=== PATIENT | male | born 1955 | race Caucasian/White ===

== ENCOUNTER → 2018-06-28 | Outpatient (CLI) | payer MEDICARE, OTHER | LOC: M PAIN 12:30 | DX: M54.5 Low back pain (principal); M79.18 Myalgia, other site; M47.816 Spondylosis without myelopathy or radiculopathy, lumbar region; M54.2 Cervicalgia; M53.3 Sacrococcygeal disorders, not elsewhere classified; E78.00 Pure hypercholesterolemia, unspecified; I10 Essential (primary) hypertension; G43.909 Migraine, unspecified, not intractable, without status migrainosus; M19.90 Unspecified osteoarthritis, unspecified site; F17.210 Nicotine dependence, cigarettes, uncomplicated; R06.83 Snoring; Z79.82 Long term (current) use of aspirin; Z79.899 Other long term (current) drug therapy; Z88.8 Allergy status to other drugs, medicaments and biological substances; Z86.79 Personal history of other diseases of the circulatory system | CPT/HCPCS: G0463 ==

== ENCOUNTER → 2018-07-06 | Outpatient (CLI) | payer MEDICARE, OTHER ==
[~2018-07-06] MED LIST: BUPIVACAINE HCL 0.25% 30 ML VIAL As Ordered; TRIAMCINOLONE ACETONIDE SUSP 40 MG/ML VIAL (J3301) As Ordered; diazePAM 5 MG TAB As Ordered; oxyCODONE 5MG TAB As Ordered
== END ==
LOC: M PAIN 13:15
DX: M79.18 Myalgia, other site (principal); M54.5 Low back pain; I10 Essential (primary) hypertension; G43.909 Migraine, unspecified, not intractable, without status migrainosus; E78.00 Pure hypercholesterolemia, unspecified; M19.90 Unspecified osteoarthritis, unspecified site; F17.210 Nicotine dependence, cigarettes, uncomplicated; Z79.82 Long term (current) use of aspirin; Z79.899 Other long term (current) drug therapy; Z88.8 Allergy status to other drugs, medicaments and biological substances
CPT/HCPCS: J3301

== ENCOUNTER → 2018-07-12 | Outpatient (CLI) | payer MEDICARE, OTHER | LOC: M RAD 11:18 | DX: Z12.2 Encounter for screening for malignant neoplasm of respiratory organs (principal); Z87.891 Personal history of nicotine dependence | CPT/HCPCS: G0297 ==

== ENCOUNTER → 2018-07-21 | Outpatient (CLI) | payer MEDICARE, OTHER ==
[~2018-07-21] MED LIST changes: +/DULO30CA OR; +/ESOM40CA OR; +ASCO500T PO; +ASPI81CH32 PO; +ASPI81TA3 OR; -BUPIVACAINE HCL 0.25% 30 ML VIAL As Ordered; +COQ10 OR; +CRES20TA OR; +CYCL10TA PO; +DULO1CAP3 PO; +ESOM40CA35 PO; +FISH300C2 OR; +FLEXERIL PO; +GABA600T3 OR; +HYDR-4517 PO; +KRIL1000 PO; +LISI10TA4 PO; +LOPR1TAB6 PO; +LOPR50TA OR; +MELOPOW OR; +NEUR800T PO; +NIAS500T2 OR; +NITR0.4S SL; +NITR0.4S14 SL; +RYZOLT; +SILD100T PO; +SILD25TA OR; +SOMA350T OR; +THERAPEUTIC M OR; +TRAMPOW3 XX; +TRAZ50TA OR; -TRIAMCINOLONE ACETONIDE SUSP 40 MG/ML VIAL (J3301) As Ordered; +TYLENOL #3 OR; +ULTRTA OR; +VARE1TA OR; +VITA500C OR; +VITA50TA12 OR; +[UNRECOGNIZED DRUG - OTHER] OR; -diazePAM 5 MG TAB As Ordered; -oxyCODONE 5MG TAB As Ordered
--- NOTE | 2018-08-08 23:41 | ECWPNPC ---
PATIENT NAME: ADÁN VALENTIN : 1955 GENDER: MALE VISIT DATE: 07/21/2018 DISCHARGE DATE: 07/21/18 1514 VISIT LOCKED DATE TIME: PHYSICIAN: ANAI WAY MD RESOURCE: ANAI WAY MD REASON FOR APPOINTMENT 1. POST TPI HISTORY OF PRESENT ILLNESS DEPRESSION SCREENING: PHQ-2 IN LAST TWO WEEKS HAVE YOU BEEN BOTHERED BY LITTLE INTEREST OR PLEASURE IN DOING THINGSNO FEELING DOWN, DEPRESSED, OR HOPELESSNO HISTORY OF PRESENT ILLNESS: PAIN THE PATIENT DESCRIBES THE PAIN... 62 YEAR OLD MALE PATIENT WITH A HISTORY OF CHRONIC LOW BACK PAIN. PATIENT DESCRIBES THE PAIN SORE WITH A PAIN SCORE OF 2-5/10 DEPENDING ON PHYSICAL ACTIVITY. THE PATIENT RECENTLY HAD A TRIGGER POINT INJECTION DONE ON 07/06/18 AND REPORTS HAVING OVER 50% PAIN RELIEF WITH GREAT IMPROVEMENT IN MOBILITY AND FUNCTIONALITY. THE PATIENT STATES THAT HE ALSO REDUCED THE DOSAGE OF HYDROCODONE BY OVER 50% BECAUSE OF THE PAIN RELIEF. PATIENT DENIES UNEXPLAINABLE WEIGHT LOSS, FEVER, CHILLS, NEW CHANGES ON HIS URINARY OR BOWEL CONTROL. FALL RISK SCREENING: SCREENING :NO FALLS IN THE PAST YEAR CURRENT MEDICATIONS TAKING METOPROLOL TARTRATE 50 MG TABLET 1 TABLET WITH FOOD ORALLY TWICE A DAY TAKING LISINOPRIL 5 MG TABLET 1 TABLET ORALLY ONCE A DAY TAKING DULOXETINE HCL 60 MG CAPSULE DELAYED RELEASE PARTICLES 1 CAPSULE ORALLY BEFORE BEDTIME TAKING GABAPENTIN 800 MG TABLET 1 TABLET ORALLY TID TAKING NORCO 10-325 MG TABLET 1 TABLET NEEDED ORALLY EVERY 6 HRS TAKING MECLIZINE HCL 12.5 MG TABLET 1 TABLET NEEDED ORALLY ONCE A DAY TAKING ZETIA 10 MG TABLET 1 TABLET ORALLY ONCE A DAY TAKING ASPIRIN EC 325 MG TABLET DELAYED RELEASE 1 TABLET ORALLY ONCE A DAY TAKING VITAMIN C 500 MG CAPSULE ORALLY BID TAKING CENTRUM SILVER - TABLET ORALLY DAILY TAKING CO Q 10 10 MG CAPSULE 1 CAPSULE WITH A MEAL ORALLY BID TAKING OMEGA 3 340 MG CAPSULE DELAYED RELEASE 1 CAPSULE ORALLY ONCE A DAY TAKING NEXIUM 20 MG CAPSULE DELAYED RELEASE 1 CAPSULE ORALLY ONCE A DAY TAKING METAXALONE 800 MG TABLET 1 TABLET ORALLY TWICE DAILY NEEDED, NOTES: NONE IN PAST MONTH TAKING ZOLPIDEM TARTRATE ER 12.5 MG TABLET EXTENDED RELEASE 1 TABLET AT BEDTIME NEEDED ORALLY ONCE A DAY, NOTES: NONE IN WEEKS TAKING PROAIR HFA 108 (90 BASE) MCG/ACT AEROSOL SOLUTION 2 PUFFS NEEDED INHALATION EVERY 6 HRS NOT-TAKING VITAMIN B-12 100 MCG TABLET ORALLY , NOTES: 07/05/18 PM MEDICATION LIST REVIEWED AND RECONCILED WITH THE PATIENT PAST MEDICAL HISTORY FIBROMYALGIA HIGH CHOLESTEROL HYPERTENSION MIGRAINES OSTEOARTHRITIS - BACK, JOINTS CHRONIC BACK PAIN CHRONIC NECK PAIN CORONARY ARTERY DISEASE ALLERGIES ZOCOR: SIDE EFFECTS SURGICAL HISTORY STENT PLACEMENT 2006 APPENDECTOMY 2016 PILONIDAL CYST REMOVAL X3 FAMILY HISTORY FATHER: , DIAGNOSED WITH HEART DISEASE MOTHER: ALIVE, DIAGNOSED WITH HYPERTENSION, OTHER 1 SISTER(S) - HEALTHY. 2DAUGHTER(S) - HEALTHY. SISTER - HTN. SOCIAL HISTORY GENERAL: TOBACCO USE ARE YOU A:CURRENT SMOKER ARE YOU INTERESTED IN QUITTING?THINKING ABOUT QUITTING HAS CUT BACK TO A FEW CIGARETTES A DAY. COUNSELED THE PATIENT ON SMOKING CESSATION, EDUCATION [id number]/21/2018 HOW MANY CIGARETTES A DAY DO YOU SMOKE?5 OR LESS HOW OFTEN DO YOU SMOKE CIGARETTES?SOME DAYS, BUT NOT EVERY DAY PATIENT COUNSELED ON THE DANGERS OF TOBACCO USE AND URGED TO QUIT:06/28/2018 ALCOHOL SCREENING DID YOU HAVE A DRINK CONTAINING ALCOHOL IN THE PAST YEAR?YES HOW OFTEN DID YOU HAVE A DRINK CONTAINING ALCOHOL IN THE PAST YEAR?MONTHLY OR LESS (1 POINT) HOW MANY DRINKS DID YOU HAVE ON A TYPICAL DAY WHEN YOU WERE DRINKING IN THE PAST YEAR?1 OR 2 (0 POINTS) HOW OFTEN DID YOU HAVE SIX OR MORE DRINKS ON ONE OCCASION IN THE PAST YEAR?NEVER (0 POINTS) POINTS1 INTERPRETATIONNEGATIVE RECREATIONAL DRUG USE DRUG USE?NO UATSDIN [id number] LANGUAGE LANGUAGES SPOKEN:FAROESE LEARNING BARRIERS / SPECIAL NEEDS BARRIERS TO LEARNING?NO HEARING IMPAIRED?NO VISION IMPAIRED?YES :CORRECTIVE LENSES COGNITIVELY IMPAIRED?NO READINESS TO LEARN?YES LEARNING PREFERENCES?NO LEARNING CAPABILITIES PRESENT?YES EMOTIONAL BARRIERS?NO OCCUPATION: UNEMPLOYED - DISABILITY. DIET: NO ADDED SALT. MARITAL STATUS: . PAIN CLINIC PFS, CLERGY, PUBLIC HEALTH REFERRALS HAS THE PATIENT BEEN EDUCATED REGARDING HIS/HER PLAN OF CARE?YES HAS THE PATIENT BEEN EDUCATED REGARDING PAIN, THE RISK FOR PAIN, THE IMPORTANCE OF EFFECTIVE PAIN MANAGEMENT, AND THE PAIN ASSESSMENT PROCESS?YES ADVANCE DIRECTIVE ADVANCE DIRECTIVE DISCUSSED WITH PATIENT:YES DECLINED HCP INFORMATION. DECLINED ASSISTANCE WITH FILLING OUT 07/21/18 1415 BV REVIEWED WITH PATIENT 06/28/18 1301 JSREVIEWED WITH PT 07/21/18 1416 BV. HOSPITALIZATION/MAJOR DIAGNOSTIC PROCEDURE SURGERY RELATED REVIEW OF SYSTEMS REVIEWED BY: PROVIDER: ANAI WAY MD . CONSTITUTIONAL: ANY CHANGE IN YOUR MEDICAL CONDITION? NO . CHILLS NO . FEVER NO . INFECTION: DO YOU HAVE NEW INFECTIONS? NO . DO YOU HAVE HISTORY OF MRSA? NO . MUSCULOSKELETAL: ANY NEW PATTERNS OF PAIN OR NUMBNESS? NO . GASTROENTEROLOGY: ANY NEW CHANGE IN BOWEL CONTROL? NO . GENITOURINARY: ANY NEW CHANGE IN BLADDER CONTROL? NO . IS THERE A CHANCE YOU COULD BE ? NO . HEMATOLOGY/LYMPH: DO YOU TAKE ANY BLOOD THINNERS? (FOR EXAMPLE- COUMADIN, PLAVIX, AGGRENOX, PLATEL, PRADAXA, OR XARELTO) NO . WHEN WAS YOUR LAST DOSE? DATE: TIME: . NEUROLOGY: HAVE YOU FALLEN IN THE PAST 6 MONTHS? NO . ANY NEW EXTREMITY NUMBNESS OR WEAKNESS? NO . CARDIOLOGY: DO YOU HAVE A PACEMAKER OR DEFIBRILLATOR? NO . RESPIRATORY: HAVE YOU BEEN SICK IN THE PAST WEEK? NO . FEVER NO . FLU LIKE SYMPTOMS? NO . COUGH NO . INTEGUMENTARY: DO YOU HAVE ANY RASHES OR OPEN SORES? NO . ALLERGIC/IMMUNO: ARE YOU ALLERGIC TO SHELLFISH OR IV DYE? NO . ANY NEW ALLERGIES? NO . PSYCHIATRIC: DO YOU HAVE THOUGHTS OF HURTING YOURSELF OR SOMEONE ELSE? NO . ARE YOU ABUSED, NEGLECTED, OR IN AN UNSAFE ENVIRONMENT? NO . ENDOCRINOLOGY: ARE YOU DIABETIC? NO . OTHER: DO YOU NEED ANY PRESCRIPTIONS? NO . IF YES, PLEASE LIST: ____ . ANY NEW PROBLEMS WITH YOUR MEDICATIONS? NO . WHEN DID YOU LAST EAT? ____ . WHEN DID YOU LAST DRINK? ____ . WHAT DID YOU LAST DRINK? ____ . NAME OF PERSON DRIVING YOU HOME? ____ . DO YOU HAVE ANY OTHER QUESTIONS OR CONCERNS NO . VITAL SIGNS WT 230.2 LBS, HT 70 IN, BMI 33.03 INDEX, BP 153/86 MM HG, HR 72 /MIN, RR 18 /MIN, TEMP 97.0 F, OXYGEN SAT % 96%, NA INITIALS SC 14:07, REVIEWED BY: BV. EXAMINATION GENERAL EXAMINATION: PATIENT IS ALERT O X 3 AND COOPERATIVE. PATIENT IS WALKING BETTER. MILD TENDERNESS OVER THE LOW BACK. ASSESSMENTS MYALGIA, OTHER SITE - M79.18 (PRIMARY) TREATMENT MYALGIA, OTHER SITE CLINICAL NOTES: WE DISCUSSED SEVERAL ISSUES WITH MR. VALENTIN'S PAIN MANAGEMENT CASE. DUE TO THE SUCCESSFUL RESULTS OF THE TRIGGER POINT INJECTION, THE PATIENT AND I BOTH AGREED TO HOLD INJECTION INTERVENTIONS AT THIS TIME. THE PATIENT WILL FOLLOW UP WITH ME IN 3-4 WEEKS. INSTRUCTIONS WERE GIVEN, QUESTIONS WERE ANSWERED, PATIENT REPORTS UNDERSTANDING AND AGREES WITH THE PLAN. I, LANCE DIAL, DOCUMENTED THE ABOVE INFORMATION ACTING A SCRIBE FOR DR. WAY. I HAVE REVIEWED THE ABOVE DOCUMENT, WRITTEN BY LANCE DIAL SCRIBE AND I VERIFY THAT IT IS ACCURATE. PROCEDURE CODES FA211 ESTABILISHED PATIENT [facility] CHARGE G8427 CURRENT MEDS W/DOSAGES DOCUMENTED G8730 PAIN ASSESS POS TOOL F/U PLAN DOC DISPOSITION & COMMUNICATION FOLLOW UP 4 WEEKS ELECTRONICALLY SIGNED BY ANAI WAY MD, MD ON 08/08/2018 AT 05:43 PM EST DISCLAIMER : THIS IS A VISIT SUMMARY EXTRACTED FROM THE [employer] CHART. IT IS NOT A COPY OF THE [employer] PROGRESS NOTE. MTDZi
== END ==
LOC: M PAIN 14:30
PROVIDERS: ATTEND Anesthesiology
DX: M79.18 Myalgia, other site (principal); M79.7 Fibromyalgia; E78.00 Pure hypercholesterolemia, unspecified; I10 Essential (primary) hypertension; G43.909 Migraine, unspecified, not intractable, without status migrainosus; M19.90 Unspecified osteoarthritis, unspecified site; I25.10 Atherosclerotic heart disease of native coronary artery without angina pectoris; M54.2 Cervicalgia; F17.210 Nicotine dependence, cigarettes, uncomplicated; Z79.82 Long term (current) use of aspirin; Z79.899 Other long term (current) drug therapy; Z88.8 Allergy status to other drugs, medicaments and biological substances

== ENCOUNTER → 2018-07-27 | Outpatient (CLI) | payer MEDICARE, OTHER ==
--- NOTE | 2018-08-13 23:58 | ECWPNPC ---
PATIENT NAME: ADÁN VALENTIN : 1955 GENDER: MALE VISIT DATE: 07/27/2018 DISCHARGE DATE: 07/27/18 1018 VISIT LOCKED DATE TIME: PHYSICIAN: ANAI WAY MD RESOURCE: ANAI WAY MD REASON FOR APPOINTMENT 1. SACROCOCCYGEAL INJ HISTORY OF PRESENT ILLNESS HISTORY OF PRESENT ILLNESS: PAIN THE PATIENT DESCRIBES THE PAIN... 62 YEAR OLD MALE PATIENT WITH A HISTORY OF CHRONIC LOW BACK PAIN. THE PATIENT DESCRIBES THE PAIN ACHING, SORE, SHOOTING, AND LASTING ALL DAY WITH A PAIN SCORE OF 2-9/10 DEPENDING ON PHYSICAL ACTIVITY AND IF THE PATIENT IS SITTING DOWN FOR LONG PERIODS OF TIME. THE PATIENT STATES THAT HIS PAIN IS MAINLY LOCATED NEAR HIS TAILBONE AREA. PATIENT DENIES UNEXPLAINABLE WEIGHT LOSS, FEVER, CHILLS, NEW CHANGES ON HIS URINARY OR BOWEL CONTROL. FALL RISK SCREENING: SCREENING :NO FALLS IN THE PAST YEAR CURRENT MEDICATIONS TAKING METOPROLOL TARTRATE 50 MG TABLET 1 TABLET WITH FOOD ORALLY TWICE A DAY TAKING LISINOPRIL 5 MG TABLET 1 TABLET ORALLY ONCE A DAY TAKING DULOXETINE HCL 60 MG CAPSULE DELAYED RELEASE PARTICLES 1 CAPSULE ORALLY BEFORE BEDTIME TAKING GABAPENTIN 800 MG TABLET 1 TABLET ORALLY TID TAKING NORCO 10-325 MG TABLET 1 TABLET NEEDED ORALLY EVERY 6 HRS TAKING MECLIZINE HCL 12.5 MG TABLET 1 TABLET NEEDED ORALLY ONCE A DAY TAKING ZETIA 10 MG TABLET 1 TABLET ORALLY ONCE A DAY TAKING ASPIRIN EC 325 MG TABLET DELAYED RELEASE 1 TABLET ORALLY ONCE A DAY TAKING VITAMIN C 500 MG CAPSULE ORALLY BID TAKING CENTRUM SILVER - TABLET ORALLY DAILY TAKING CO Q 10 10 MG CAPSULE 1 CAPSULE WITH A MEAL ORALLY BID TAKING OMEGA 3 340 MG CAPSULE DELAYED RELEASE 1 CAPSULE ORALLY ONCE A DAY TAKING NEXIUM 20 MG CAPSULE DELAYED RELEASE 1 CAPSULE ORALLY ONCE A DAY TAKING METAXALONE 800 MG TABLET 1 TABLET ORALLY TWICE DAILY NEEDED, NOTES: NONE IN PAST MONTH TAKING ZOLPIDEM TARTRATE ER 12.5 MG TABLET EXTENDED RELEASE 1 TABLET AT BEDTIME NEEDED ORALLY ONCE A DAY, NOTES: NONE IN WEEKS TAKING PROAIR HFA 108 (90 BASE) MCG/ACT AEROSOL SOLUTION 2 PUFFS NEEDED INHALATION EVERY 6 HRS NOT-TAKING VITAMIN B-12 100 MCG TABLET ORALLY , NOTES: 07/05/18 PM MEDICATION LIST REVIEWED AND RECONCILED WITH THE PATIENT PAST MEDICAL HISTORY FIBROMYALGIA HIGH CHOLESTEROL HYPERTENSION MIGRAINES OSTEOARTHRITIS - BACK, JOINTS CHRONIC BACK PAIN CHRONIC NECK PAIN CORONARY ARTERY DISEASE ALLERGIES ZOCOR: SIDE EFFECTS SURGICAL HISTORY STENT PLACEMENT 2006 APPENDECTOMY 2016 PILONIDAL CYST REMOVAL X3 FAMILY HISTORY FATHER: , DIAGNOSED WITH HEART DISEASE MOTHER: ALIVE, DIAGNOSED WITH HYPERTENSION, OTHER 1 SISTER(S) - HEALTHY. 2DAUGHTER(S) - HEALTHY. SISTER - HTN. SOCIAL HISTORY GENERAL: TOBACCO USE ARE YOU A:CURRENT SMOKER ARE YOU INTERESTED IN QUITTING?THINKING ABOUT QUITTING HAS CUT BACK TO A FEW CIGARETTES A DAY. COUNSELED THE PATIENT ON SMOKING CESSATION, EDUCATION [id number]/20/2018 HOW MANY CIGARETTES A DAY DO YOU SMOKE?5 OR LESS HOW OFTEN DO YOU SMOKE CIGARETTES?SOME DAYS, BUT NOT EVERY DAY PATIENT COUNSELED ON THE DANGERS OF TOBACCO USE AND URGED TO QUIT:07/27/2018 ALCOHOL SCREENING DID YOU HAVE A DRINK CONTAINING ALCOHOL IN THE PAST YEAR?YES HOW OFTEN DID YOU HAVE A DRINK CONTAINING ALCOHOL IN THE PAST YEAR?MONTHLY OR LESS (1 POINT) HOW MANY DRINKS DID YOU HAVE ON A TYPICAL DAY WHEN YOU WERE DRINKING IN THE PAST YEAR?1 OR 2 (0 POINTS) HOW OFTEN DID YOU HAVE SIX OR MORE DRINKS ON ONE OCCASION IN THE PAST YEAR?NEVER (0 POINTS) POINTS1 INTERPRETATIONNEGATIVE RECREATIONAL DRUG USE DRUG USE?NO VOODOO [id number] LATTER-DAY LANGUAGE LANGUAGES SPOKEN:INDIAN LEARNING BARRIERS / SPECIAL NEEDS BARRIERS TO LEARNING?NO HEARING IMPAIRED?NO VISION IMPAIRED?YES :CORRECTIVE LENSES COGNITIVELY IMPAIRED?NO READINESS TO LEARN?YES LEARNING PREFERENCES?NO LEARNING CAPABILITIES PRESENT?YES EMOTIONAL BARRIERS?NO OCCUPATION: UNEMPLOYED - DISABILITY. DIET: NO ADDED SALT. MARITAL STATUS: . PAIN CLINIC PFS, CLERGY, PUBLIC HEALTH REFERRALS HAS THE PATIENT BEEN EDUCATED REGARDING HIS/HER PLAN OF CARE?YES HAS THE PATIENT BEEN EDUCATED REGARDING PAIN, THE RISK FOR PAIN, THE IMPORTANCE OF EFFECTIVE PAIN MANAGEMENT, AND THE PAIN ASSESSMENT PROCESS?YES ADVANCE DIRECTIVE ADVANCE DIRECTIVE DISCUSSED WITH PATIENT:YES DECLINES HCP INFORMATION AT THIS TIME. REVIEWED WITH PATIENT 06/28/18 1301 JSREVIEWED WITH PT 07/21/18 1416 BVREVIEWED WITH PATIENT 07/27/18 0947 JS. HOSPITALIZATION/MAJOR DIAGNOSTIC PROCEDURE SURGERY RELATED REVIEW OF SYSTEMS REVIEWED BY: PROVIDER: ANAI WAY MD . CONSTITUTIONAL: ANY CHANGE IN YOUR MEDICAL CONDITION? NO . CHILLS NO . FEVER NO . INFECTION: DO YOU HAVE NEW INFECTIONS? NO . DO YOU HAVE HISTORY OF MRSA? NO . MUSCULOSKELETAL: ANY NEW PATTERNS OF PAIN OR NUMBNESS? NO . GASTROENTEROLOGY: ANY NEW CHANGE IN BOWEL CONTROL? NO . GENITOURINARY: ANY NEW CHANGE IN BLADDER CONTROL? NO . IS THERE A CHANCE YOU COULD BE ? NO . HEMATOLOGY/LYMPH: DO YOU TAKE ANY BLOOD THINNERS? (FOR EXAMPLE- COUMADIN, PLAVIX, AGGRENOX, PLATEL, PRADAXA, OR XARELTO) NO . WHEN WAS YOUR LAST DOSE? DATE: TIME: . NEUROLOGY: HAVE YOU FALLEN IN THE PAST 6 MONTHS? NO . ANY NEW EXTREMITY NUMBNESS OR WEAKNESS? NO . CARDIOLOGY: DO YOU HAVE A PACEMAKER OR DEFIBRILLATOR? NO . RESPIRATORY: HAVE YOU BEEN SICK IN THE PAST WEEK? NO . FEVER NO . FLU LIKE SYMPTOMS? NO . COUGH NO . INTEGUMENTARY: DO YOU HAVE ANY RASHES OR OPEN SORES? YES, STATES OPEN SORES TO LOW BACK AT THIS TIME . ALLERGIC/IMMUNO: ARE YOU ALLERGIC TO SHELLFISH OR IV DYE? NO . ANY NEW ALLERGIES? NO . PSYCHIATRIC: DO YOU HAVE THOUGHTS OF HURTING YOURSELF OR SOMEONE ELSE? NO . ARE YOU ABUSED, NEGLECTED, OR IN AN UNSAFE ENVIRONMENT? NO . ENDOCRINOLOGY: ARE YOU DIABETIC? NO . OTHER: DO YOU NEED ANY PRESCRIPTIONS? NO . IF YES, PLEASE LIST: ____ . ANY NEW PROBLEMS WITH YOUR MEDICATIONS? NO . WHEN DID YOU LAST EAT? ____08/05/182129 . WHEN DID YOU LAST DRINK? ____07/26/182129 . WHAT DID YOU LAST DRINK? ____ . NAME OF PERSON DRIVING YOU HOME? ____AMY . DO YOU HAVE ANY OTHER QUESTIONS OR CONCERNS NO . VITAL SIGNS WT 235 LBS, HT 70 IN, BMI 33.72 INDEX, BP 127/78 MM HG, HR 74 /MIN, RR 18 /MIN, TEMP 97.2 F, OXYGEN SAT % 99%, SAFE IN ENV? (Y/N) YES, NA INITIALS NV 08:44, REVIEWED BY: RAMIRO. EXAMINATION GENERAL EXAMINATION: PATIENT IS ALERT O X 3 AND COOPERATIVE. TENDERNESS IN THE TAILBONE AREA. SKIN LESIONS OVER THE LOW BACK AREA. MRI OF THE LUMBAR SPINE DONE ON 05/10/2018 SHOWS A DISC PROTRUSION AT L4-L5. ASSESSMENTS COCCYDYNIA - M53.3 (PRIMARY) SKIN LESIONS - L98.9 TREATMENT COCCYDYNIA CLINICAL NOTES: WE DISCUSSED SEVERAL ISSUES WITH MR. JACKSON'S PAIN MANAGEMENT CASE. I WILL SEND A CONSULT TO DR. FELIPE REGARDING THE SKIN LESIONS. THE PATIENT WILL FOLLOW UP IN 2 WEEKS TO DISCUSS INTERVENTIONS AFTER HE SEES DR. FELIPE. INSTRUCTIONS WERE GIVEN, QUESTIONS WERE ANSWERED, PATIENT REPORTS UNDERSTANDING AND AGREES WITH THE PLAN. I, REJI FOSTER, DOCUMENTED THE ABOVE INFORMATION ACTING A SCRIBE FOR DR. WAY. I HAVE REVIEWED THE ABOVE DOCUMENT, WRITTEN BY REJI PEREIRAIBNelly AND I VERIFY THAT IT IS ACCURATE. PROCEDURE CODES FA211 ESTABILISHED PATIENT [facility] CHARGE G8427 CURRENT MEDS W/DOSAGES DOCUMENTED G8730 PAIN ASSESS POS TOOL F/U PLAN DOC DISPOSITION & COMMUNICATION FOLLOW UP 2 WEEKS ELECTRONICALLY SIGNED BY ANAI WAY MD, ON 08/13/2018 AT 03:29 PM EST DISCLAIMER : THIS IS A VISIT SUMMARY EXTRACTED FROM THE [employer] CHART. IT IS NOT A COPY OF THE [employer] PROGRESS NOTE. MTDD
== END ==
LOC: M PAIN 09:00
PROVIDERS: ATTEND Anesthesiology
DX: M53.3 Sacrococcygeal disorders, not elsewhere classified (principal); G89.29 Other chronic pain; L98.9 Disorder of the skin and subcutaneous tissue, unspecified; M79.7 Fibromyalgia; E78.00 Pure hypercholesterolemia, unspecified; E03.9 Hypothyroidism, unspecified; G43.909 Migraine, unspecified, not intractable, without status migrainosus; M19.90 Unspecified osteoarthritis, unspecified site; F17.210 Nicotine dependence, cigarettes, uncomplicated; Z79.82 Long term (current) use of aspirin; Z79.899 Other long term (current) drug therapy; Z88.8 Allergy status to other drugs, medicaments and biological substances; Z86.79 Personal history of other diseases of the circulatory system

== ENCOUNTER → 2018-08-31 | Outpatient (CLI) | payer MEDICARE, OTHER | LOC: M PAIN 15:30 | PROVIDERS: ATTEND Anesthesiology | DX: M54.5 Low back pain (principal); Z53.29 Procedure and treatment not carried out because of patient's decision for other reasons ==

== ENCOUNTER → 2020-09-15 | Outpatient (CLI) | payer MEDICARE, OTHER ==
[~2020-09-15] MED LIST changes: -/DULO30CA OR; -/ESOM40CA OR; -ASPI81CH32 PO; +ASPI81CH33 PO; +CYCL-707 PO; -CYCL10TA PO; +CYMB1CAP5 OR; -DULO1CAP3 PO; +DULO1CAP6 PO; +LISI10TA22 PO; -LISI10TA4 PO; +NEXI1CAP3 OR; +PRED10PA2 PO
--- NOTE | 2020-09-15 15:48 | REP ---
INDICATION: TOBACCO ABUSE, LUNG CANCER SCREENING. COMPARISON: Comparison chest CT studies are dated 12 July 2018 and 22 Dec 2017.. TECHNIQUE: Low-dose screening protocol, helical scanning, 3 mm axial images are provided at lung only windows. FINDINGS: Preliminary digital president radiograph is unremarkable. The lungs are somewhat hyperinflated. There is a small subpleural 3 mm noncalcified nodular density in the left lower lobe on page 73 of 110 in series 201 of today's study. This is unchanged from prior study December 22, 2017 and is considered benign. No other pulmonary nodule is appreciated. There is some vascular calcification. The study is otherwise unremarkable. IMPRESSION: Lung RADS category 1 findings. Repeat screening study suggested in 1 year. <Electronically signed by Ayden Crow > 09/15/20 0165
== END ==
LOC: M RAD 13:37
PROVIDERS: ATTEND Internal Medicine Hematology & Oncology
DX: Z12.2 Encounter for screening for malignant neoplasm of respiratory organs (principal); F17.218 Nicotine dependence, cigarettes, with other nicotine-induced disorders

== ENCOUNTER → 2021-08-27 | Outpatient (REF) | payer MEDICARE, OTHER ==
[~2021-08-27] MED LIST changes: +IRBE150T7; +METF500T13 PO; +METO50TA7
== END ==
LOC: M LAB REF 17:09
PROVIDERS: ATTEND Dermatology
DX: L57.0 Actinic keratosis (principal)

== ENCOUNTER → 2021-09-16 | Outpatient (CLI) | payer MEDICARE, OTHER | LOC: M RAD 09:57 | PROVIDERS: ATTEND Internal Medicine Hematology & Oncology | DX: Z12.2 Encounter for screening for malignant neoplasm of respiratory organs (principal); R91.1 Solitary pulmonary nodule; F17.218 Nicotine dependence, cigarettes, with other nicotine-induced disorders ==

== ENCOUNTER → 2023-04-20 | Outpatient (CLI) | payer MEDICARE, OTHER ==
[~2023-04-20] MED LIST changes: +RANO500T2; +TRUL10IN
== END ==
LOC: M PLAIMG 13:05
PROVIDERS: ATTEND Internal Medicine Pulmonary Disease
DX: R91.8 Other nonspecific abnormal finding of lung field (principal)

== ENCOUNTER → 2023-06-08 | Outpatient (CLI) | payer MEDICARE, OTHER ==
[~2023-06-08] MED LIST changes: +AMOX500C; +ASPI-1 PO; +BREO1INH PO; +CENTRUM SILVER PO; +FLUT1BLS8; +ROSU10TA6; +SERT50TA29; +TRAZ1TAB11; +VITA200016 PO; +[UNRECOGNIZED DRUG - OTHER] PO; +mega red PO
== END ==
LOC: M RAD 07:46
PROVIDERS: ATTEND Nurse Practitioner
DX: R16.1 Splenomegaly, not elsewhere classified (principal)

== ENCOUNTER → 2024-06-07 | Outpatient (CLI) | payer MEDICARE, OTHER ==
[~2024-06-07] MED LIST changes: +ACET1TAB55 PO; +GABA-284; +IRBE150T27; -IRBE150T7; -ROSU10TA6; +ROSU10TA61
== END ==
LOC: M RAD 14:21
PROVIDERS: ATTEND Internal Medicine Pulmonary Disease
DX: Z12.2 Encounter for screening for malignant neoplasm of respiratory organs (principal); F17.218 Nicotine dependence, cigarettes, with other nicotine-induced disorders

== ENCOUNTER → 2025-06-10 | Outpatient (CLI) | payer MEDICARE, OTHER ==
[~2025-06-10] MED LIST changes: +ISOVUE-370 76% 100 ML VIAL ONE; +RIME75TA; -ROSU10TA61; +ROSU10TA90
== END ==
LOC: M PLAIMG 09:28
PROVIDERS: ATTEND Student in an Organized Health Care Education/Training Program
DX: D47.2 Monoclonal gammopathy (principal)
CPT/HCPCS: 71260; 74177; Q9967

== ENCOUNTER 2025-07-23 10:43 | Day surgery (SDC) | payer MEDICARE, OTHER ==
[~2025-07-23] VITALS: Ht 180.3 cm; Wt 77.1 kg
[~2025-07-23 10:43] MED LIST changes: +COQ150CH PO; +FLUT1BLS8 IH; +GABA-284 PO; -ISOVUE-370 76% 100 ML VIAL ONE; +KRIL1CAP20 PO; +PROA1AER2 IN; +RIME75TA PO; +ROSU10TA90 PO; +SERT50TA29 PO; +THERTAB52 PO
[2025-07-23] MEDS ORDERED: LIDOCAINE 2% 100 MG/5 ML SDV (FOR ANES.) As Ordered ONE (12:03)
[2025-07-23 12:31] VITALS: TEMP 97
[2025-07-23 12:51] VITALS: BP 137/63; O2SAT 98
== END 2025-07-23 13:07 | disposition home or self-care (01) ==
LOC: M OPP 10:43
PROVIDERS: ATTEND Surgery
DX: D12.5 Benign neoplasm of sigmoid colon (principal); K64.0 First degree hemorrhoids; D50.9 Iron deficiency anemia, unspecified; K29.70 Gastritis, unspecified, without bleeding; R10.13 Epigastric pain; G47.30 Sleep apnea, unspecified; Z95.5 Presence of coronary angioplasty implant and graft; Z88.8 Allergy status to other drugs, medicaments and biological substances; Z79.82 Long term (current) use of aspirin; Z79.891 Long term (current) use of opiate analgesic; Z79.51 Long term (current) use of inhaled steroids; Z79.85 Long-term (current) use of injectable non-insulin antidiabetic drugs; J44.9 Chronic obstructive pulmonary disease, unspecified; F17.210 Nicotine dependence, cigarettes, uncomplicated